=== PATIENT | male | born 1965 | race Caucasian/White ===

== ENCOUNTER 2017-03-09 11:47 | Inpatient (IN) | payer OTHER ==
[~2017-03-09] VITALS: Ht 175.3 cm; Wt 111.3 kg
[2017-03-09 13:11] LABS: BASOPHIL % 0.3 % (0-2); PLATELET COUNT 393 x10^3mcL (130-400); RED CELL DISTRIBUTION WIDTH 12.7 % (11.5-14.5)
[2017-03-09 13:42] LABS: CALCIUM 8.5 mg/dL (8.5-10.1); CARBON DIOXIDE 27.8 mmol/L (21-32); CHLORIDE SERUM 104 mmol/L (98-107); GFR1 > 60 mL/min; GLUCOSE SERUM 106 mg/dL (74-106); SODIUM SERUM 141 mmol/L (136-145)
[2017-03-09 13:46] LABS: ALKALINE PHOSPHATASE 71 U/L (46-116); ALT/SGPT 25 U/L (16-63); AST/SGOT 11 U/L (15-37); BILIRUBIN TOTAL 0.4 mg/dL (0.20-1.00); LIPASE 68 IU/L (73-393); TOTAL PROTEIN, SERUM 7.9 g/dL (6.4-8.2)
[2017-03-09 13:48] LABS: ALBUMIN 3.3 g/dL (3.4-5.0)
[2017-03-09 14:57] LABS: microscopic required? YES; urine erythrocyte 1+ (NEGATIVE)
[2017-03-09 15:03] LABS: UA SPECIFIC GRAVITY 1.025 (1.005-1.035)
[2017-03-09 15:17] LABS: AMPHETAMINE QUAL UR NONE DETECTED (NEG <=1000)
[2017-03-09 16:21] VITALS: BP 157/78
[2017-03-09 17:51] LABS: FREE T4 0.94 ng/dL (0.76-1.46); FREE THYROXINE INDEX 2.6 ug/dL (1.4-4.5); T4(THYROXINE) 8.5 ug/dL (4.7-13.3)
[2017-03-09 17:52] LABS: T3 TOTAL 1.2 ng/mL
[2017-03-09 18:48] LABS: MAGNESIUM 2.1 mg/dL (1.8-2.4); PHOSPHOROUS 5.3 mg/dL (2.5-4.9)
[2017-03-09 18:51] LABS: CHOLESTEROL/HDL RATIO 3.9
[2017-03-09 21:42] VITALS: BP 136/68
[2017-03-09 21:51] VITALS: BP 148/78
[2017-03-10 05:14] VITALS: BP 138/71
[2017-03-10 05:53] VITALS: BP 103/52
[2017-03-10 06:15] LABS: BASOPHIL % 0.2 % (0-2); PLATELET COUNT 315 x10^3mcL (130-400); RED CELL DISTRIBUTION WIDTH 12.8 % (11.5-14.5)
[2017-03-10 06:40] LABS: CALCIUM 8.1 mg/dL (8.5-10.1); CARBON DIOXIDE 26.5 mmol/L (21-32); CHLORIDE SERUM 105 mmol/L (98-107); CREATININE SERUM 0.7 mg/dL (0.7-1.3); GFR1 > 60 mL/min; GLUCOSE SERUM 97 mg/dL (74-106); MAGNESIUM 1.7 mg/dL (1.8-2.4); PHOSPHOROUS 4.2 mg/dL (2.5-4.9); POTASSIUM SERUM 4.2 mmol/L (3.5-5.1); SODIUM SERUM 139 mmol/L (136-145)
[2017-03-10 09:46] VITALS: BP 131/72
[2017-03-10 14:40] VITALS: BP 137/57
[2017-03-10 17:48] VITALS: BP 138/76
[2017-03-10 21:50] VITALS: BP 131/72
[2017-03-11 05:48] VITALS: BP 129/76
[2017-03-11 06:05] LABS: BASOPHIL % 0.1 % (0-2); PLATELET COUNT 310 x10^3mcL (130-400); RED CELL DISTRIBUTION WIDTH 12.7 % (11.5-14.5)
[2017-03-11 09:20] VITALS: BP 114/767
[2017-03-11] MEDS ORDERED: FLA500 PO (11:30)
[2017-03-11] MEDS ORDERED: TYL325 PO (11:33)
[2017-03-11] MEDS ORDERED: ASA400 PO (11:44)
[2017-03-11] MEDS ORDERED: LAC PO (11:45)
[2017-03-11] MEDS ORDERED: PRE20 PO (11:56)
[2017-03-11] MEDS ORDERED: NOR10T PO (14:12)
[2017-03-11 14:28] VITALS: BP 114/76
== END 2017-03-11 18:13 | disposition home or self-care (01) | DRG 254 ==
LOC: ED 11:47 → DU 14:02 → MU 03-11 01:24
PROVIDERS: Emergency Medicine; Internal Medicine Gastroenterology; ADMIT Family Medicine
PROC: 0DBN8ZX Excision of Sigmoid Colon, Via Natural or Artificial Opening Endoscopic, Diagnostic (ICD-10-PCS; 2017-03-10)
PROC: 0DBF8ZX Excision of Right Large Intestine, Via Natural or Artificial Opening Endoscopic, Diagnostic (ICD-10-PCS; 2017-03-10)
PROC: 0DBG8ZX Excision of Left Large Intestine, Via Natural or Artificial Opening Endoscopic, Diagnostic (ICD-10-PCS; principal; 2017-03-10 14:30)
DX: K63.89 Other specified diseases of intestine (principal); D68.69 Other thrombophilia; E44.1 Mild protein-calorie malnutrition; L03.315 Cellulitis of perineum; E83.39 Other disorders of phosphorus metabolism; R73.03 Prediabetes; D64.9 Anemia, unspecified; E66.9 Obesity, unspecified; Z68.36 Body mass index [BMI] 36.0-36.9, adult
CPT/HCPCS: 45378; 82962; 83880; 84439; 87046; 87046-59; J0295; J1170; J1200; J1610; J1885; J1956; J2250; J2310; J3010; J3490; J7030; J7512; Q0092

== ENCOUNTER 2017-03-30 14:04 | Inpatient (IN) | payer OTHER ==
[~2017-03-30] VITALS: Ht 175.3 cm; Wt 104.0 kg
[~2017-03-30 14:04] MED LIST: ASA400 PO; FLA500 PO; LAC PO; NOR10T PO; PRE20 PO; TYL325 PO
[2017-03-30 14:56] LABS: BASOPHIL % 0.2 % (0-2); PLATELET COUNT 335 x10^3mcL (130-400); RED CELL DISTRIBUTION WIDTH 13.8 % (11.5-14.5)
[2017-03-30 15:08] LABS: CALCIUM 8.3 mg/dL (8.5-10.1); CARBON DIOXIDE 30.8 mmol/L (21-32); CHLORIDE SERUM 94 mmol/L (98-107); GFR1 > 60 mL/min; GLUCOSE SERUM 201 mg/dL (74-106); POTASSIUM SERUM 3.5 mmol/L (3.5-5.1); SODIUM SERUM 132 mmol/L (136-145)
[2017-03-30 15:18] LABS: ALKALINE PHOSPHATASE 97 U/L (46-116); ALT/SGPT 65 U/L (16-63); AST/SGOT 47 U/L (15-37); BILIRUBIN TOTAL 0.72 mg/dL (0.20-1.00); TOTAL PROTEIN, SERUM 7.5 g/dL (6.4-8.2)
[2017-03-30 15:21] LABS: ALBUMIN 2.3 g/dL (3.4-5.0)
[2017-03-30 15:23] LABS: T3 TOTAL 0.95 ng/mL
[2017-03-30 15:39] LABS: FREE T4 1.09 ng/dL (0.76-1.46); FREE THYROXINE INDEX 2.2 ug/dL (1.4-4.5); T4(THYROXINE) 6.7 ug/dL (4.7-13.3)
[2017-03-30 15:42] LABS: UA SPECIFIC GRAVITY 1.015 (1.005-1.035); microscopic required? YES; urine erythrocyte TRACE (NEGATIVE)
[2017-03-30 15:47] LABS: C REACTIVE PROTEIN 39.9 mg/dL (<=0.9)
[2017-03-30 15:50] LABS: ERYTHROCYTE SED RATE 111 mm/hr (0-20)
[2017-03-30 15:52] LABS: CK-MB < 0.5 ng/mL (0-3.6); CREATINE KINASE 142 U/L (39-308)
[2017-03-30 17:03] LABS: AMPHETAMINE QUAL UR NONE DETECTED (NEG <=1000)
[2017-03-30 17:14] LABS: PHOSPHOROUS 3.2 mg/dL (2.5-4.9)
[2017-03-30 17:17] LABS: CHOLESTEROL/HDL RATIO 4.7
[2017-03-30 18:09] VITALS: BP 113/67
[2017-03-30 20:50] VITALS: BP 126/76
[2017-03-31 05:42] VITALS: BP 125/71
[2017-03-31 06:12] LABS: PLATELET COUNT 290 x10^3mcL (130-400); RED CELL DISTRIBUTION WIDTH 13.9 % (11.5-14.5)
[2017-03-31 06:16] LABS: CALCIUM 8.5 mg/dL (8.5-10.1); CARBON DIOXIDE 27.2 mmol/L (21-32); CHLORIDE SERUM 103 mmol/L (98-107); CREATININE SERUM 0.8 mg/dL (0.7-1.3); GFR1 > 60 mL/min; GLUCOSE SERUM 168 mg/dL (74-106); POTASSIUM SERUM 4.8 mmol/L (3.5-5.1); SODIUM SERUM 137 mmol/L (136-145)
[2017-03-31 07:12] LABS: BASOPHIL % 0 % (0-2)
[2017-03-31 14:12] VITALS: BP 114/52
[2017-03-31 17:31] VITALS: BP 126/70
[2017-03-31 21:23] VITALS: BP 116/52
[2017-04-01 05:04] VITALS: BP 124/54
[2017-04-01 06:16] LABS: PLATELET COUNT 296 x10^3mcL (130-400); RED CELL DISTRIBUTION WIDTH 14.2 % (11.5-14.5)
[2017-04-01 06:27] LABS: CALCIUM 8.3 mg/dL (8.5-10.1); CARBON DIOXIDE 24.7 mmol/L (21-32); CHLORIDE SERUM 102 mmol/L (98-107); CREATININE SERUM 0.8 mg/dL (0.7-1.3); GFR1 > 60 mL/min; GLUCOSE SERUM 243 mg/dL (74-106); POTASSIUM SERUM 4.3 mmol/L (3.5-5.1); SODIUM SERUM 137 mmol/L (136-145)
[2017-04-01 06:47] LABS: BASOPHIL % 0 % (0-2)
[2017-04-01 09:08] VITALS: BP 171/63
[2017-04-01 13:47] VITALS: BP 113/61
[2017-04-01 16:45] VITALS: BP 145/68
[2017-04-01 21:49] VITALS: BP 128/69
[2017-04-02 05:47] VITALS: BP 110/70
[2017-04-02 07:46] LABS: BASOPHIL % 0 % (0-2); PLATELET COUNT 333 x10^3mcL (130-400); RED CELL DISTRIBUTION WIDTH 14.2 % (11.5-14.5)
[2017-04-02 08:49] LABS: CALCIUM 8.5 mg/dL (8.5-10.1); CARBON DIOXIDE 25.5 mmol/L (21-32); CREATININE SERUM 0.7 mg/dL (0.7-1.3); GFR1 > 60 mL/min; GLUCOSE SERUM 149 mg/dL (74-106); PHOSPHOROUS 4.8 mg/dL (2.5-4.9)
[2017-04-02 09:14] VITALS: BP 93/47
[2017-04-02 10:12] LABS: CHLORIDE SERUM 105 mmol/L (98-107); MAGNESIUM 2.1 mg/dL (1.8-2.4); POTASSIUM SERUM 4.4 mmol/L (3.5-5.1); SODIUM SERUM 139 mmol/L (136-145)
[2017-04-02 13:19] VITALS: BP 122/64
[2017-04-02 16:59] VITALS: BP 113/47
[2017-04-02 20:41] VITALS: BP 114/60
[2017-04-03 05:42] VITALS: BP 91/50
[2017-04-03 06:16] LABS: PLATELET COUNT 371 x10^3mcL (130-400); RED CELL DISTRIBUTION WIDTH 14.1 % (11.5-14.5)
[2017-04-03 06:32] LABS: CALCIUM 8.4 mg/dL (8.5-10.1); CHLORIDE SERUM 103 mmol/L (98-107); CREATININE SERUM 0.7 mg/dL (0.7-1.3); GFR1 > 60 mL/min; GLUCOSE SERUM 143 mg/dL (74-106); POTASSIUM SERUM 4.3 mmol/L (3.5-5.1); SODIUM SERUM 138 mmol/L (136-145)
[2017-04-03 06:37] LABS: BASOPHIL % 0 % (0-2)
[2017-04-03 09:57] VITALS: BP 93/47
[2017-04-03 13:32] VITALS: BP 117/67
[2017-04-03 16:41] VITALS: BP 120/63
[2017-04-03 21:10] VITALS: BP 124/60
[2017-04-04 05:49] VITALS: BP 122/60
[2017-04-04 07:31] LABS: BASOPHIL % 0.1 % (0-2); PLATELET COUNT 439 x10^3mcL (130-400)
[2017-04-04 09:34] VITALS: BP 101/46
[2017-04-04 13:56] VITALS: BP 119/64
[2017-04-04 17:13] VITALS: BP 112/47
[2017-04-04 21:22] VITALS: BP 118/61
[2017-04-05 05:45] VITALS: BP 103/50
[2017-04-05 06:31] LABS: RED CELL DISTRIBUTION WIDTH 13.8 % (11.5-14.5)
[2017-04-05 06:35] LABS: CALCIUM 8.6 mg/dL (8.5-10.1); CARBON DIOXIDE 28.7 mmol/L (21-32); CHLORIDE SERUM 103 mmol/L (98-107); CREATININE SERUM 0.7 mg/dL (0.7-1.3); GFR1 > 60 mL/min; GLUCOSE SERUM 152 mg/dL (74-106); POTASSIUM SERUM 5.1 mmol/L (3.5-5.1); SODIUM SERUM 138 mmol/L (136-145)
[2017-04-05 06:38] LABS: BASOPHIL % 0 % (0-2); PLATELET COUNT 450 x10^3mcL (130-400)
[2017-04-05 10:34] VITALS: BP 133/70
[2017-04-05] MEDS ORDERED: NOR10T PO (12:16)
[2017-04-05 12:52] VITALS: BP 133/70
== END 2017-04-05 14:00 | disposition home or self-care (01) | DRG 223 ==
LOC: ED 14:04 → DU 16:20 → MU 04-04 12:50
PROVIDERS: Family Medicine Sports Medicine; Specialist; Surgery; ADMIT Family Medicine
PROC: 0DH Gastrointestinal System, Insertion (ICD-10-PCS; 2017-03-31)
PROC: 0D9P0ZZ Drainage of Rectum, Open Approach (ICD-10-PCS; principal; 2017-03-31 08:00)
DX: K61.1 Rectal abscess (principal); N17.0 Acute kidney failure with tubular necrosis; L03.317 Cellulitis of buttock; D68.69 Other thrombophilia; E11.65 Type 2 diabetes mellitus with hyperglycemia; K51.314 Ulcerative (chronic) rectosigmoiditis with abscess; E44.1 Mild protein-calorie malnutrition; E87.8 Other disorders of electrolyte and fluid balance, not elsewhere classified; E87.1 Hypo-osmolality and hyponatremia; R80.9 Proteinuria, unspecified; D64.9 Anemia, unspecified; M17.0 Bilateral primary osteoarthritis of knee; Z68.36 Body mass index [BMI] 36.0-36.9, adult; F17.210 Nicotine dependence, cigarettes, uncomplicated; L02.31 Cutaneous abscess of buttock; K51.30 Ulcerative (chronic) rectosigmoiditis without complications; E66.9 Obesity, unspecified
CPT/HCPCS: 82962; 83880; 84439; J0690; J1170; J1885; J1956; J2175; J2250; J2405; J2543; J2704; J3010; J3490; J7030; J7040; J7512; Q0092; Q9967

== ENCOUNTER 2017-05-13 13:27 | Inpatient (IN) | payer OTHER ==
[~2017-05-13] VITALS: Ht 170.2 cm; Wt 100.7 kg
[2017-05-13 21:59] LABS: BASOPHIL % 0.3 % (0-2)
[2017-05-13 22:00] LABS: PLATELET COUNT 423 x10^3mcL (130-400); RED CELL DISTRIBUTION WIDTH 15.4 % (11.5-14.5)
[2017-05-14 00:02] VITALS: BP 125/82
[2017-05-14 00:04] VITALS: Ht 170.2 cm; Wt 100.7 kg
[2017-05-14 01:00] LABS: UA SPECIFIC GRAVITY 1.025 (1.005-1.035); microscopic required? YES; urine erythrocyte NEGATIVE (NEGATIVE)
[2017-05-14 02:09] LABS: T3 TOTAL 1.26 ng/mL
[2017-05-14 02:19] LABS: ALKALINE PHOSPHATASE 39 U/L (46-116); ALT/SGPT 16 U/L (16-63); AST/SGOT 18 U/L (15-37); BILIRUBIN TOTAL 0.29 mg/dL (0.20-1.00); CALCIUM 7.5 mg/dL (8.5-10.1); CARBON DIOXIDE 23.2 mmol/L (21-32); CHLORIDE SERUM 103 mmol/L (98-107); GFR1 > 60 mL/min; GLUCOSE SERUM 92 mg/dL (74-106); POTASSIUM SERUM 3.3 mmol/L (3.5-5.1); SODIUM SERUM 139 mmol/L (136-145)
[2017-05-14 02:26] LABS: ALBUMIN 2.2 g/dL (3.4-5.0); TOTAL PROTEIN, SERUM 5.8 g/dL (6.4-8.2)
[2017-05-14 02:39] LABS: AMPHETAMINE QUAL UR NONE DETECTED (NEG <=1000)
[2017-05-14 04:00] VITALS: BP 106/65
[2017-05-14 04:39] LABS: MAGNESIUM 1.8 mg/dL (1.8-2.4); PHOSPHOROUS 5.1 mg/dL (2.5-4.9)
[2017-05-14 04:45] LABS: CHOLESTEROL/HDL RATIO 4.5
[2017-05-14 04:49] LABS: FREE T4 1.28 ng/dL (0.76-1.46); FREE THYROXINE INDEX 2.6 ug/dL (1.4-4.5); T4(THYROXINE) 7.2 ug/dL (4.7-13.3)
[2017-05-14 06:08] VITALS: BP 112/71
[2017-05-14 08:18] LABS: ALKALINE PHOSPHATASE 39 U/L (46-116); ALT/SGPT 20 U/L (16-63); AST/SGOT 23 U/L (15-37); BILIRUBIN TOTAL 0.27 mg/dL (0.20-1.00); CARBON DIOXIDE 23.8 mmol/L (21-32); CHLORIDE SERUM 105 mmol/L (98-107); CREATININE SERUM 1.1 mg/dL (0.7-1.3); GFR1 > 60 mL/min; GLUCOSE SERUM 87 mg/dL (74-106); POTASSIUM SERUM 3.4 mmol/L (3.5-5.1); SODIUM SERUM 139 mmol/L (136-145); TOTAL PROTEIN, SERUM 6.4 g/dL (6.4-8.2)
[2017-05-14 08:19] LABS: ALBUMIN 2.2 g/dL (3.4-5.0)
[2017-05-14 09:47] VITALS: BP 137/76
[2017-05-14 12:48] VITALS: BP 113/57
[2017-05-14 13:19] VITALS: BP 113/57
== END 2017-05-14 16:00 | disposition home or self-care (01) | DRG 254 ==
LOC: ED 13:27 → DU 22:17
PROVIDERS: Emergency Medicine; Student in an Organized Health Care Education/Training Program
DX: K61.0 Anal abscess (principal); E43 Unspecified severe protein-calorie malnutrition; E87.2 Acidosis; E11.65 Type 2 diabetes mellitus with hyperglycemia; F17.200 Nicotine dependence, unspecified, uncomplicated; E87.6 Hypokalemia; Z68.34 Body mass index [BMI] 34.0-34.9, adult; M17.9 Osteoarthritis of knee, unspecified; K51.90 Ulcerative colitis, unspecified, without complications
CPT/HCPCS: 82962; 83880; 84439; J1885; J2543; J3490; J7030; Q9967

== ENCOUNTER 2019-01-04 12:58 | Emergency (ER) | payer OTHER ==
[~2019-01-04] VITALS: Ht 172.7 cm; Wt 108.0 kg
[2019-01-04 13:38] VITALS: BP 132/73; Ht 172.7 cm; Wt 108.0 kg
== END 2019-01-04 16:15 | disposition left against medical advice (07) ==
LOC: ED 12:58
DX: Z53.21 Procedure and treatment not carried out due to patient leaving prior to being seen by health care provider (principal)